=== PATIENT | male | born 1980 | race Two or more races ===

== ENCOUNTER 2018-03-09 19:19 | Emergency (ER) | payer BC ==
--- NOTE | 2018-03-09 19:52 | EDM.PDOC ---
ED HPI GENERAL MEDICAL PROBLEM - General Chief Complaint: ENT Problem Stated Complaint: TOOTH HURTS Time Seen by Provider: 03/09/18 19:47 Source of Information: Reports: Patient History Limitations: Reports: No Limitations - History of Present Illness INITIAL COMMENTS - FREE TEXT/NARRATIVE: HISTORY AND PHYSICAL: History of present illness: [Dental pain x 5 days. Was evaluated by [facility] on 03/08/18 in [place]. Forgot his Rx's at [facility] office for PCN and hydrocodone. Office called PCN in to pharmacy, and pt was offered to p/u Rx at [facility] office, which he declined. Denies fever and chills. NO chest pain, SOA dyspnea. No abd pain, nausea, vomiting. ] Review of systems: As per history of present illness and below otherwise all systems reviewed and negative. Past medical history: As per history of present illness and as reviewed below otherwise noncontributory. Surgical history: As per history of present illness and as reviewed below otherwise noncontributory. Social history: No reported history of drug or alcohol abuse. Family history: As per history of present illness and as reviewed below otherwise noncontributory. Physical exam: HEENT: Atraumatic, normocephalic. No facial swelling or deformity appreciated. Tooth #17 is broken to posterior lateral surface. Other teeth are in good repair and w/o cavities. Neck is supple, no lymphadenopathy. Lungs: Clear to auscultation, breath sounds equal bilaterally, chest nontender. Heart: S1S2, regular, negative for clicks, rubs, or JVD. Abdomen: Soft, nondistended, nontender. Pelvis: Stable nontender. Genitourinary: Deferred. Rectal: Deferred. Extremities: Atraumatic. Neurovascular unremarkable. Neuro: Awake, alert, oriented. Motor and sensory unremarkable throughout. Exam nonfocal. Therapeutics: [Dental balls, Toradol 60 mg IM] Impression: [Dental pain] Plan: [Ibuprofen 800 mg #30 sig 1 by mouth 3 times a day. F/u with dentist. ] Definitive disposition and diagnosis as appropriate pending reevaluation and review of above. tooth Pain Score (Numeric/FACES): 10 - Related Data Allergies Allergy/AdvReac Type Severity Reaction Status Date / Time No Known Allergies Allergy Verified 03/09/18 19:31 Home Meds: Home Meds Ibuprofen [Motrin] 800 mg PO QID PRN 03/10/18 [History] Penicillin V Potassium 500 mg PO Q6HR 03/10/18 [History] Past Medical History - Past Health History Medical/Surgical History: Denies Medical/Surgical History - Infectious Disease History Infectious Disease History: Reports: None Social & Family History - Family History Family Medical History: Noncontributory - Tobacco Use Smoking Status *Q: Never Smoker - Recreational Drug Use Recreational Drug Use: No ED ROS ENT - Review of Systems Review Of Systems: ROS reveals no pertinent complaints other than HPI. ED EXAM, ENT - Physical Exam Exam: See Below Course - Vital Signs Last Recorded V/S: Last Vital Signs Temp 98.2 F 03/09/18 20:25 Pulse 98 03/09/18 20:25 Resp 14 03/09/18 20:25 BP 141/82 H 03/09/18 20:25 Pulse Ox 98 03/09/18 20:25 - Orders/Labs/Meds Meds: Medications Discontinued Medications Generic Name Dose Route Start Last Admin Trade Name Tabitha PRN Reason Stop Dose Admin Benzocaine 2 each 03/09/18 19:55 03/09/18 20:02 Hurricaine One 20% MUCMEM 03/09/18 19:56 2 each ONETIME ONE Administration Ketorolac Tromethamine 60 mg 03/09/18 19:53 03/09/18 20:02 Toradol IM 03/09/18 19:54 60 mg ONETIME ONE Administration Lidocaine HCl 15 ml 03/09/18 19:55 03/09/18 20:02 Xylocaine 2% Viscous PO 03/09/18 19:56 15 ml ONETIME ONE Administration Departure - Departure Time of Disposition: 19:55 Disposition: Home, Self-Care 01 Condition: Good Clinical Impression: Pain, dental - Discharge Information Instructions: Tooth Injuries, [id number] Referrals: PCP,None [Primary Care Provider] - Forms: ED Department Discharge Additional Instructions: The following information is given to patients seen in the emergency department who are being discharged to home. This information is to outline your options for follow-up care. We provide all patients seen in our emergency department with a follow-up referral. The need for follow-up, as well as the timing and circumstances, are variable depending upon the specifics of your emergency department visit. If you don't have a primary care physician on staff, we will provide you with a referral. We always advise you to contact your personal physician following an emergency department visit to inform them of the circumstance of the visit and for follow-up with them and/or the need for any referrals to a consulting specialist. The emergency department will also refer you to a specialist when appropriate. This referral assures that you have the opportunity for follow-up care with a specialist. All of these measure are taken in an effort to provide you with optimal care, which includes your follow-up. Under all circumstances we always encourage you to contact your private physician who remains a resource for coordinating your care. When calling for follow-up care, please make the office aware that this follow-up is from your recent emergency room visit. If for any reason you are refused follow-up, please contact the [facility] emergency department at and asked to speak to the emergency department charge nurse. [facility] Primary Care [address] [place] [id number] Follow-up with your local primary care provider at the clinic listed above in 48 -72 hours. Establish care with a local dentist. Will not be given any pain medication through the emergency room for your dental pain. Recommend Tylenol alternating with ibuprofen and you may use dental balls as needed. Return to ER as needed as discussed.
[2018-03-09] MEDS ORDERED: Ketorolac 60 MG/2 ML SDV IM ONE (19:53)
[2018-03-09] MEDS ORDERED: Lidocaine 2% Viscous Solution 15 ML Cup PO ONE (19:55)
[2018-03-09] MEDS ORDERED: Benzocaine 20% Topical Spray UD MUCMEM ONE (19:55)
== END 2018-03-09 20:25 | disposition home or self-care (01) ==
LOC: MW.ED 19:19
DX: K08.89 Other specified disorders of teeth and supporting structures (principal)
CPT/HCPCS: 96372; 99282; A9270; J1885

== ENCOUNTER 2018-03-10 18:17 | Emergency (ER) | payer BC ==
--- NOTE | 2018-03-10 18:46 | EDM.PDOC ---
ED HPI GENERAL MEDICAL PROBLEM - General Chief Complaint: ENT Problem Stated Complaint: TOOTHACHE Time Seen by Provider: 03/10/18 18:40 Source of Information: Reports: Patient History Limitations: Reports: No Limitations - History of Present Illness INITIAL COMMENTS - FREE TEXT/NARRATIVE: HISTORY AND PHYSICAL: History of present illness: [Returns to ER today. Was last seen in ER yesterday by this provider. Pain hasn' t improved at all w/ ibuprofen 800mg and dental balls. He is scheduled to follow up w/ dentist for tooth extraction on 03/28 per his report. No fever or chills. Complaint is largely unchanged from yesterday. ] Review of systems: As per history of present illness and below otherwise all systems reviewed and negative. Past medical history: As per history of present illness and as reviewed below otherwise noncontributory. Surgical history: As per history of present illness and as reviewed below otherwise noncontributory. Social history: No reported history of drug or alcohol abuse. Family history: As per history of present illness and as reviewed below otherwise noncontributory. Physical exam: HEENT: Atraumatic, normocephalic. Tooth #17 is cracked, with posterior lateral surface missing. Oral mucous membranes moist, throat is clear. neck supple, nontender. Lungs: Clear to auscultation, breath sounds equal bilaterally, chest nontender. Heart: S1S2, regular, negative for clicks, rubs, or JVD. Abdomen: Soft, nondistended, nontender. Negative for masses or hepatosplenomegaly. Negative for costovertebral tenderness. Pelvis: Stable nontender. Genitourinary: Deferred. Rectal: Deferred. Extremities: Atraumatic, negative for cords or calf pain. Neurovascular unremarkable. Neuro: Awake, alert, oriented. Motor and sensory unremarkable throughout. Exam nonfocal. Impression: [dental pain] Plan: [Rx written for Hydrocodone 5/325 mg #10 sig 1/2-1 tablet by mouth every 6-8 hours as needed for pain 0 refills. Urged pt to follow up w/ [facility] as scheduled and sooner as needed. He is in agreement w/ today's plan. ] Definitive disposition and diagnosis as appropriate pending reevaluation and review of above. Oral/Mouth Pain Score (Numeric/FACES): 10 - Related Data Allergies Allergy/AdvReac Type Severity Reaction Status Date / Time No Known Allergies Allergy Verified 03/09/18 19:31 Home Meds: Home Meds Ibuprofen [Motrin] 800 mg PO QID PRN 03/10/18 [History] Penicillin V Potassium 500 mg PO Q6HR 03/10/18 [History] Past Medical History - Past Health History Medical/Surgical History: Denies Medical/Surgical History - Infectious Disease History Infectious Disease History: Reports: None Social & Family History - Family History Family Medical History: Noncontributory - Tobacco Use Smoking Status *Q: Never Smoker - Caffeine Use Caffeine Use: Reports: Coffee - Recreational Drug Use Recreational Drug Use: No ED ROS ENT - Review of Systems Review Of Systems: ROS reveals no pertinent complaints other than HPI. ED EXAM, ENT - Physical Exam Exam: See Below Course - Vital Signs Last Recorded V/S: Last Vital Signs Temp 97.0 F 03/10/18 18:25 Pulse 64 03/10/18 18:25 Resp 12 03/10/18 18:25 BP 134/86 03/10/18 18:25 Pulse Ox 97 03/10/18 18:25 Departure - Departure Time of Disposition: 18:45 Disposition: Home, Self-Care 01 Condition: Good Clinical Impression: Pain, dental - Discharge Information Referrals: PCP,None [Primary Care Provider] - Forms: ED Department Discharge Additional Instructions: The following information is given to patients seen in the emergency department who are being discharged to home. This information is to outline your options for follow-up care. We provide all patients seen in our emergency department with a follow-up referral. The need for follow-up, as well as the timing and circumstances, are variable depending upon the specifics of your emergency department visit. If you don't have a primary care physician on staff, we will provide you with a referral. We always advise you to contact your personal physician following an emergency department visit to inform them of the circumstance of the visit and for follow-up with them and/or the need for any referrals to a consulting specialist. The emergency department will also refer you to a specialist when appropriate. This referral assures that you have the opportunity for follow-up care with a specialist. All of these measure are taken in an effort to provide you with optimal care, which includes your follow-up. Under all circumstances we always encourage you to contact your private physician who remains a resource for coordinating your care. When calling for follow-up care, please make the office aware that this follow-up is from your recent emergency room visit. If for any reason you are refused follow-up, please contact the [facility] emergency department at and asked to speak to the emergency department charge nurse. [facility] Primary Care [address] [place] [id number] Follow-up with your local primary care provider or with your dentist as scheduled. Take medication as prescribed. Return to ER as needed as discussed.
[2018-03-10] MEDS ORDERED: Ketorolac 60 MG/2 ML SDV IM ONE (19:01)
[2018-03-10] MEDS ORDERED: Ketorolac 60 MG/2 ML SDV ONE (19:02)
== END 2018-03-10 19:30 | disposition home or self-care (01) ==
LOC: MW.ED 18:17
DX: K08.89 Other specified disorders of teeth and supporting structures (principal)
CPT/HCPCS: 96372; 99282; J1885; 99283